=== PATIENT | female | born 1950 | race African-American/Black ===

== ENCOUNTER 2025-04-02 21:30 | Emergency (ER) | payer BC, MEDICAID ==
[~2025-04-02] VITALS: Ht 152.4 cm; Wt 64.0 kg
[~2025-04-02 21:30] MED LIST: DOCU-422 PO; FERR325T30 PO; LOSA50TA41 PO
[2025-04-02 21:35] VITALS: O2SAT 100
[2025-04-02] MEDS: BACITRACIN ZINC OINT UDPKT TOP ONE (22:30)
[2025-04-02] MEDS: ACETAMINOPHEN 325MG TABLET PO ONE (22:30)
[2025-04-02] MEDS: LIDOCAINE HCL 1% 20ML VIAL INFIL ONE (22:30)
[2025-04-02] MEDS: TETANUS, DIPHTHERIA, PERTUSSIS VAC/PF 0.5ML (>10YR OLD) IM ONE (23:23)
[2025-04-03] MEDS ORDERED: BO1 TP (02:24)
[2025-04-03] MEDS ORDERED: ACET-2708 MT (02:24)
[2025-04-03 09:20] VITALS: BP 139/80; PULSE 72; RESP 15; TEMP 36.8; O2SAT 100
== END 2025-04-03 09:26 | disposition home or self-care (01) ==
LOC: ER 21:30
DX: S01.81XA Laceration without foreign body of other part of head, initial encounter (principal); S09.90XA Unspecified injury of head, initial encounter; D17.0 Benign lipomatous neoplasm of skin and subcutaneous tissue of head, face and neck; I11.9 Hypertensive heart disease without heart failure; Z79.899 Other long term (current) drug therapy; Z95.0 Presence of cardiac pacemaker; X58.XXXA Exposure to other specified factors, initial encounter; Y93.89 Activity, other specified; Y92.89 Other specified places as the place of occurrence of the external cause; Y99.8 Other external cause status
CPT/HCPCS: 99285; 90715; 12011; 90471; 70450; 70486; 72125; J2003